=== PATIENT | female | born 1985 | race Caucasian/White ===

== ENCOUNTER 2016-06-29 01:52 | Emergency (ER) | payer MEDICAID ==
[~2016-06-29] VITALS: Ht 162.6 cm; Wt 64.3 kg
[~2016-06-29 01:52] MED LIST: ASCO500T12 PO; CLON-365 PO; DULO30CA2 PO; HYDR-3240 PO; IRON15TA3 PO; LORA-446 PO; OMEP-110 PO; SUCR1ORA2 PO; TRAZ100T15 PO
[2016-06-29 01:58] VITALS: BP 122/88
[2016-06-29] MEDS ORDERED: ONDANSETRON ODT 4 MG ONE (02:08)
[2016-06-29] MEDS ORDERED: LORazepam 1MG TABLET ONE (02:08)
[2016-06-29] MEDS ORDERED: ONDANSETRON 4 MG TABLET PO ONE (02:30)
[2016-06-29] MEDS ORDERED: LORazepam 1MG TABLET PO ONE (02:30)
== END 2016-06-29 02:43 | disposition home or self-care (01) ==
LOC: ED 02:20
DX: F10.239 Alcohol dependence with withdrawal, unspecified (principal); F41.1 Generalized anxiety disorder; F32.9 Major depressive disorder, single episode, unspecified; Y90.9 Presence of alcohol in blood, level not specified; Z72.89 Other problems related to lifestyle
CPT/HCPCS: 99283; Q0162

== ENCOUNTER 2016-10-26 10:04 | Emergency (ER) | payer MEDICAID ==
[~2016-10-26] VITALS: Ht 165.1 cm; Wt 62.1 kg
[2016-10-26 10:06] VITALS: BP 113/74
[2016-10-26 11:14] LABS: HCG UR OBC PASS
== END 2016-10-26 11:41 | disposition home or self-care (01) ==
LOC: ED 10:24
DX: F10.239 Alcohol dependence with withdrawal, unspecified (principal); R31.29 Other microscopic hematuria
CPT/HCPCS: 81001; 81025; 87077; 87086; 87186; 93005; 99285

== ENCOUNTER 2016-12-02 08:23 | Emergency (ER) | payer MEDICAID ==
[~2016-12-02] VITALS: Ht 162.6 cm; Wt 60.0 kg
[~2016-12-02 08:23] MED LIST changes: -SUCR1ORA2 PO; +SUCR1ORA5 PO
[2016-12-02 09:10] LABS: DAU SCREEN DISCLAIMER
[2016-12-02 09:33] LABS: HEMATOCRIT 47.1 % (34.6-47.8); WHITE BLOOD COUNT 2.9 x10^3/uL (3.4-10)
[2016-12-02 09:34] LABS: BLOOD UREA NITROGEN 10 mg/dL (7-18)
[2016-12-02 09:37] LABS: ASPARTATE AMINO TRANSFERASE 443 U/L (15-37)
[2016-12-02 09:44] LABS: HCG UR OBC PASS
[2016-12-02 10:10] LABS: ACETAMINOPHEN < 2 mcg/mL (10-30)
[2016-12-02] MEDS ORDERED: ACETAMINOPHEN 325 MG TABLET PO ONE (13:00)
[2016-12-02] MEDS ORDERED: ACETAMINOPHEN 325 MG TABLET ONE (13:48)
[2016-12-02 14:20] VITALS: BP 120/84
[2016-12-02] MEDS ORDERED: CLON2TAB PO (20:52)
== END 2016-12-02 14:48 | disposition home or self-care (01) ==
LOC: ED 09:01
DX: F10.120 Alcohol abuse with intoxication, uncomplicated (principal); K70.9 Alcoholic liver disease, unspecified
CPT/HCPCS: 36415; 80053; 80307; 80329; 81025; 85025; 99284; G0480

== ENCOUNTER 2016-12-02 20:25 | Emergency (ER) | payer MEDICAID ==
[~2016-12-02] VITALS: Ht 165.1 cm; Wt 59.5 kg
[2016-12-02] MEDS ORDERED: CLON2TAB PO (20:52)
[2016-12-02] MEDS ORDERED: THIAMINE 100MG TABLET PO ONE (21:00)
[2016-12-02] MEDS ORDERED: FOLIC ACID 1 MG TABLET PO ONE (21:00)
[2016-12-02 21:14] LABS: HEMATOCRIT 43.1 % (34.6-47.8); HEMOGLOBIN 14.7 g/dL (11.7-16.4); WHITE BLOOD COUNT 3.2 x10^3/uL (3.4-10)
[2016-12-02 21:24] LABS: ASPARTATE AMINO TRANSFERASE 705 U/L (15-37); BLOOD UREA NITROGEN 10 mg/dL (7-18)
[2016-12-02 21:25] LABS: DAU SCREEN DISCLAIMER
[2016-12-02 21:32] LABS: ACETAMINOPHEN < 2 mcg/mL (10-30)
[2016-12-02] MEDS ORDERED: IBUPROFEN 200 MG TABLET ONE (21:48)
[2016-12-02] MEDS ORDERED: ONDANSETRON ODT 4 MG ONE (21:51)
[2016-12-02] MEDS ORDERED: ONDANSETRON ODT 4 MG PO ONE (22:00)
[2016-12-02] MEDS ORDERED: IBUPROFEN 200 MG TABLET PO ONE (22:00)
[2016-12-02 23:00] VITALS: BP 115/79
[2016-12-02] MEDS ORDERED: LORazepam 1MG TABLET ONE (23:33)
[2016-12-03] MEDS ORDERED: LORazepam 1MG TABLET PO ONE
== END 2016-12-02 23:48 | disposition home or self-care (01) ==
LOC: ED 23:17
DX: F10.230 Alcohol dependence with withdrawal, uncomplicated (principal); N30.90 Cystitis, unspecified without hematuria; F17.200 Nicotine dependence, unspecified, uncomplicated; Z88.0 Allergy status to penicillin
CPT/HCPCS: 36415; 80053; 80307; 80329; 81001; 84703; 85025; 87077; 87086; 87186; 99284; Q0162; G0480

== ENCOUNTER 2016-12-03 19:36 | Emergency (ER) | payer MEDICAID ==
[~2016-12-03] VITALS: Ht 170.2 cm; Wt 64.0 kg
[~2016-12-03 19:36] MED LIST changes: +CLON2TAB PO
[2016-12-03] MEDS ORDERED: NITROFURANTOIN (MACROBID) 100 MG CAPSULE PO ONE (20:00)
[2016-12-03] MEDS ORDERED: SODIUM CHLORIDE FLUSH 10ML SYR IVF ONE (20:00)
[2016-12-03] MEDS ORDERED: SODIUM CHLORIDE 0.9% 1,000ML IVBOLUS ONE (20:00)
[2016-12-03] MEDS ORDERED: THIAMINE 100MG TABLET PO ONE (20:00)
[2016-12-03] MEDS ORDERED: LORazepam 2 MG/ML, 1ML IVPush PRN (20:00)
[2016-12-03] MEDS ORDERED: ONDANSETRON 2MG/ML, 2ML IVPush ONE ×2 (20:00→22:30)
[2016-12-03] MEDS ORDERED: ONDANSETRON 2MG/ML, 2ML ONE ×2 (20:07→22:15)
[2016-12-03] MEDS ORDERED: LORazepam 2 MG/ML, 1ML ONE (20:07)
[2016-12-03 20:12] LABS: BLOOD UREA NITROGEN 11 mg/dL (7-18)
[2016-12-03 20:15] LABS: ASPARTATE AMINO TRANSFERASE 443 U/L (15-37)
[2016-12-03 20:25] LABS: HEMATOCRIT 37.6 % (34.6-47.8); HEMOGLOBIN 12.8 g/dL (11.7-16.4); WHITE BLOOD COUNT 2.4 x10^3/uL (3.4-10)
[2016-12-03] MEDS ORDERED: THIAMINE 100MG TABLET ONE (21:32)
[2016-12-03 22:42] VITALS: BP 110/64
== END 2016-12-03 22:44 | disposition home or self-care (01) ==
LOC: ED 19:40
DX: F10.239 Alcohol dependence with withdrawal, unspecified (principal); F41.9 Anxiety disorder, unspecified; F19.10 Other psychoactive substance abuse, uncomplicated; Z88.0 Allergy status to penicillin
CPT/HCPCS: 36415; 80053; 85025; 96361; 96374; 96375; 96376; 99285; J2060; J2405; J7030

== ENCOUNTER 2017-03-10 12:26 | Emergency (ER) | payer MEDICAID ==
[~2017-03-10] VITALS: Ht 165.1 cm; Wt 60.0 kg
[2017-03-10] MEDS ORDERED: LORazepam 2 MG/ML, 1ML IVPush ONE (13:00)
[2017-03-10] MEDS ORDERED: PLEASE ENTER HEIGHT AND WEIGHT MC SCH (13:00)
[2017-03-10] MEDS ORDERED: THIAMINE 100MG TABLET PO ONE (13:00)
[2017-03-10] MEDS ORDERED: FOLIC ACID 1 MG TABLET PO ONE (13:00)
[2017-03-10] MEDS ORDERED: SODIUM CHLORIDE FLUSH 10ML SYR IVF ONE (13:00)
[2017-03-10] MEDS ORDERED: CHLORDIAZEPOXIDE 25 MG CAPSULE PO ONE (13:00)
[2017-03-10] MEDS ORDERED: ONDANSETRON 2MG/ML, 2ML IVPush ONE (13:00)
[2017-03-10] MEDS ORDERED: SODIUM CHLORIDE 0.9% 1,000ML IVBOLUS ONE (13:00)
[2017-03-10 13:31] LABS: HEMATOCRIT 42.8 % (34.6-47.8); HEMOGLOBIN 14.9 g/dL (11.7-16.4); WHITE BLOOD COUNT 5.7 x10^3/uL (3.4-10)
[2017-03-10 13:41] LABS: BLOOD UREA NITROGEN 8 mg/dL (7-18)
[2017-03-10 13:47] LABS: ASPARTATE AMINO TRANSFERASE 307 U/L (15-37)
[2017-03-10 15:57] VITALS: BP 104/66
== END 2017-03-10 15:59 | disposition home or self-care (01) ==
LOC: ED 13:49
DX: F10.129 Alcohol abuse with intoxication, unspecified (principal); F41.9 Anxiety disorder, unspecified; I48.91 Unspecified atrial fibrillation
CPT/HCPCS: 36415; 80053; 84703; 85025; 93005; 96361; 96374; 96375; 99285; J2060; J2405; J7030

== ENCOUNTER 2017-05-09 20:39 | Emergency (ER) | payer MEDICAID ==
[~2017-05-09] VITALS: Ht 165.1 cm; Wt 62.0 kg
[2017-05-09] MEDS ORDERED: ONDANSETRON 2MG/ML, 2ML ONE (21:00)
[2017-05-09] MEDS ORDERED: SODIUM CHLORIDE FLUSH 10ML SYR IVF ONE (21:00)
[2017-05-09] MEDS ORDERED: THIAMINE 100MG TABLET PO ONE (21:00)
[2017-05-09] MEDS ORDERED: SODIUM CHLORIDE 0.9% 1,000ML IVBOLUS ONE (21:00)
[2017-05-09] MEDS ORDERED: ONDANSETRON 2MG/ML, 2ML IVPush ONE (21:00)
[2017-05-09] MEDS ORDERED: LORazepam 2 MG/ML, 1ML ONE ×2 (21:07→22:08)
[2017-05-09 21:24] LABS: BASOPHILS # (AUTO) 0.02 x10^3/uL (0-0.1); BASOPHILS % (AUTO) 1 % (0-1); EOSINOPHILS # (AUTO) 0.02 x10^3/uL (0-0.4); EOSINOPHILS % (AUTO) 0 % (1-7); LYMPHOCYTES # (AUTO) 0.97 x10^3/uL (1-3.4); LYMPHOCYTES % (AUTO) 23 % (22-44); MD NO; MEAN CORPUSCULAR HEMOGLOBIN 31.8 pg (27.0-34.8); MEAN CORPUSCULAR VOLUME 96.5 fL (80-100); MEAN PLATELET VOLUME 7.2 fL (7.4-10.4); MONOCYTES % (AUTO) 12 % (2-9); NEUTROPHILS # (AUTO) 2.75 x10^3/uL (1.8-6.8); NEUTROPHILS % (AUTO) 65 % (42-75); PLATELET COUNT 168 x10^3/uL (130-400); RED BLOOD COUNT 4.53 x10^6/uL (3.82-5.3); RED CELL DISTRIBUTION WIDTH 15.1 % (9.6-15.2)
[2017-05-09] MEDS ORDERED: LORazepam 2 MG/ML, 1ML IVPush ONE ×2 (21:30→22:00)
[2017-05-09 21:35] LABS: INTERNATIONAL NORMALIZED RATIO 1.13 (0.93-1.1); PROTHROMBIN TIME 11.6 Seconds (9.6-11.5)
[2017-05-09 21:36] LABS: ALBUMIN 3.9 g/dL (3.4-5.0); ANION GAP 11 mmol/L (5-15); CALCIUM 8.4 mg/dL (8.5-10.1); CHLORIDE 98 mmol/L (98-107); CREATININE 0.48 mg/dL (0.55-1.02)
[2017-05-09] MEDS ORDERED: PROMETHAZINE 25 MG/ML, 1ML IM ONE (22:00)
[2017-05-09] MEDS ORDERED: PROMETHAZINE 25 MG/ML, 1ML ONE (22:02)
[2017-05-09] MEDS ORDERED: LORazepam 1MG TABLET PO ONE (22:30)
[2017-05-09 23:45] VITALS: BP 100/63
== END 2017-05-09 23:48 | disposition short-term general hospital (02) ==
LOC: ED 21:59
DX: S00.81XA Abrasion of other part of head, initial encounter (principal); F10.10 Alcohol abuse, uncomplicated; W19.XXXA Unspecified fall, initial encounter; Y93.89 Activity, other specified; Y92.89 Other specified places as the place of occurrence of the external cause; Y99.9 Unspecified external cause status
CPT/HCPCS: 36415; 70450; 70486; 72125; 80048; 82040; 84703; 85025; 85610; 96361; 96372; 96374; 96375; 96376; 99285; J2060; J2405; J2550; J7030

== ENCOUNTER 2017-06-28 14:35 | Emergency (ER) | payer MEDICAID ==
[~2017-06-28] VITALS: Ht 166.4 cm; Wt 58.3 kg
[2017-06-28 14:39] VITALS: BP 123/76
[2017-06-28 15:47] LABS: MEAN CORPUSCULAR HEMOGLOBIN 31.8 pg (27.0-34.8); MEAN CORPUSCULAR HGB CONC 33.5 g/dL (32.4-35.8); MEAN PLATELET VOLUME 6.5 fL (7.4-10.4); PLATELET COUNT 254 x10^3/uL (130-400); RED BLOOD COUNT 4.88 x10^6/uL (3.82-5.3); RED CELL DISTRIBUTION WIDTH 17.8 % (9.6-15.2)
[2017-06-28 15:55] LABS: ALANINE AMINOTRANSFERASE 135 U/L (12-78); ALBUMIN 4.1 g/dL (3.4-5.0); ANION GAP 10 mmol/L (5-15); CALCIUM 8.4 mg/dL (8.5-10.1); CHLORIDE 99 mmol/L (98-107)
[2017-06-28 16:00] LABS: ALKALINE PHOSPHATASE 81 U/L (45-117); BILIRUBIN,TOTAL 1.2 mg/dL (0.2-1.0); CREATININE 0.66 mg/dL (0.55-1.02); TOTAL PROTEIN 7.9 g/dL (6.4-8.2)
[2017-06-28 16:06] LABS: MICROSCOPIC INDICATED
[2017-06-28 16:08] LABS: CULTURE INDICATED? YES
[2017-06-28 16:14] LABS: MD YES
[2017-06-28 16:45] LABS: BASOS#(MANUAL) 0.02 x10^3/uL (0-0.1); BASOS% (MANUAL) 1 % (0-1); EOS#(MANUAL) 0.02 x10^3/uL (0.0-0.4); EOS% (MANUAL) 1 % (1-7); LYMPH#(MANUAL) 0.98 x10^3/uL (1-3.4); LYMPHS% (MANUAL) 41 % (22-44); MONOS#(MANUAL) 0.31 x10^3/uL (0.3-2.7); MONOS% (MANUAL) 13 % (2-9); REACTIVE LYMPHS % (MANUAL) 4 % (0-0); SEG#(MANUAL) 0.96 x10^3/uL (1.8-6.8); SEGS% (MANUAL) 40 % (42-75)
[2017-06-28 16:46] LABS: <PLATELET ESTIMATE> ADEQUATE; <PLT MORPHOLOGY> NORMAL PLT MORPH; <RBC MORPHOLOGY> NORMAL
== END 2017-06-28 17:14 | disposition home or self-care (01) ==
LOC: ED 16:45
DX: F10.129 Alcohol abuse with intoxication, unspecified (principal); Z00.00 Encounter for general adult medical examination without abnormal findings
CPT/HCPCS: 36415; 80053; 81001; 83690; 84703; 85025; 87077; 87086; 99284

== ENCOUNTER 2017-09-01 20:20 | Emergency (ER) | payer MEDICAID ==
[~2017-09-01] VITALS: Ht 165.1 cm; Wt 59.0 kg
[2017-09-01 21:28] VITALS: BP 122/85
== END 2017-09-01 21:51 | disposition home or self-care (01) ==
LOC: ED 21:30
DX: F10.220 Alcohol dependence with intoxication, uncomplicated (principal)
CPT/HCPCS: 99283

== ENCOUNTER 2018-04-12 11:53 | Emergency (ER) | payer MEDICAID ==
[~2018-04-12] VITALS: Ht 165.1 cm; Wt 63.8 kg
[~2018-04-12 11:53] MED LIST changes: -CLON-365 PO; +CLON1TAB11 PO; +TRAZ-137 PO; -TRAZ100T15 PO
--- NOTE | 2018-04-12 12:11 | NUR ---
RFID TECHNICIAN: PT TO ROOM, BROUGHT IN VIA EMS
--- NOTE | 2018-04-12 12:14 | NUR ---
pt changed into gown, tearful but responds approp to staff- denies HI/SI, NAD, comfort measures provided, call light within reach. cardiac, NIBP & SpO2 monitors in place.
[2018-04-12] MEDS ORDERED: THIAMINE 100MG TABLET ONE (12:57)
--- NOTE | 2018-04-12 13:09 | NUR ---
pt laying on gurney with eyes closed, responds approp to staff, NAD, comfort measures provided, call light within reach.
[2018-04-12 13:59] VITALS: BP 126/81
--- NOTE | 2018-04-12 13:59 | NUR ---
pt continues to lay on gurney awake & calm, responds approp to staff, NAD, comfort measures provided, call light within reach.
[2018-04-12] MEDS ORDERED: THIAMINE 100MG TABLET PO ONE (14:00)
--- NOTE | 2018-04-12 14:24 | NUR ---
pt ambulated to indep with this RN present, responds approp to staff, NAD, no needs at this time. Patient given discharge instructions and EtOH detox referrals, they have confirmed that they understand the instructions. Patient ambulatory with steady gait.
== END 2018-04-12 14:40 | disposition home or self-care (01) ==
LOC: ED 13:18
DX: F10.229 Alcohol dependence with intoxication, unspecified (principal); F41.1 Generalized anxiety disorder; F32.9 Major depressive disorder, single episode, unspecified; Z72.9 Problem related to lifestyle, unspecified; Y90.9 Presence of alcohol in blood, level not specified
CPT/HCPCS: 99283

== ENCOUNTER 2019-02-04 15:48 | Emergency (ER) | payer MEDICAID ==
[~2019-02-04] VITALS: Ht 165.1 cm; Wt 60.0 kg
[~2019-02-04 15:48] MED LIST changes: +ASCO-254 PO; -ASCO500T12 PO
--- NOTE | 2019-02-04 16:08 | NUR ---
Pt presents to ED by EMS from home with c/o "wanting to be admitted to detox from alchol. I want Seroquel for sleeping, I am not bipolar, last time they gave me Remeron. I didn't take it." Pt states alcohol consumption of "I don't know how much I drank today." Pt resting on gurney connected to environmental monitoring technician, NIBP cuff, and continous pulse ox monitor. Bedrails up x 2, call light within reach.
[2019-02-04] MEDS ORDERED: ONDANSETRON 2MG/ML, 2ML IVPush ONE (17:00)
[2019-02-04] MEDS ORDERED: FAMOTIDINE 20 MG TABLET PO ONE (17:00)
[2019-02-04] MEDS ORDERED: QUETIAPINE 25MG TABLET PO ONE (17:00)
[2019-02-04] MEDS ORDERED: MAALOX/HYOSCYAMINE/LIDOCAINE 45 ML BTL PO ONE (17:00)
[2019-02-04] MEDS ORDERED: ONDANSETRON ODT 4 MG ONE (17:11)
[2019-02-04] MEDS ORDERED: MAALOX/HYOSCYAMINE/LIDOCAINE 45 ML BTL ONE (17:11)
[2019-02-04] MEDS ORDERED: FAMOTIDINE 20 MG TABLET ONE (17:11)
[2019-02-04] MEDS ORDERED: QUETIAPINE 25MG TABLET ONE (17:13)
[2019-02-04 17:21] LABS: MEAN CORPUSCULAR HEMOGLOBIN 32.7 pg (27.0-34.8); MEAN CORPUSCULAR HGB CONC 33.4 g/dL (32.4-35.8); MEAN CORPUSCULAR VOLUME 97.8 fL (80-100); MEAN PLATELET VOLUME 6.9 fL (7.4-10.4); PLATELET COUNT 238 x10^3/uL (130-400); RED BLOOD COUNT 4.87 x10^6/uL (3.82-5.3); RED CELL DISTRIBUTION WIDTH 14.9 % (9.6-15.2)
[2019-02-04] MEDS ORDERED: ONDANSETRON ODT 4 MG PO ONE (17:30)
[2019-02-04] MEDS ORDERED: LORazepam 1MG TABLET PO ONE (17:30)
[2019-02-04 17:33] LABS: ALANINE AMINOTRANSFERASE 98 U/L (12-78); ALBUMIN 4.4 g/dL (3.4-5.0); ANION GAP 12 mmol/L (5-15); CHLORIDE 103 mmol/L (98-107); CREATININE 0.62 mg/dL (0.55-1.02)
[2019-02-04 17:37] LABS: ALKALINE PHOSPHATASE 52 U/L (45-117); BILIRUBIN,TOTAL 0.8 mg/dL (0.2-1.0); TOTAL PROTEIN 8.3 g/dL (6.4-8.2); TROPONIN I < 0.015 ng/mL (0.000-0.045)
[2019-02-04] MEDS ORDERED: LORazepam 1MG TABLET ONE (18:01)
[2019-02-04 18:12] LABS: BASOPHILS # (AUTO) 0.03 x10^3/uL (0-0.1); BASOPHILS % (AUTO) 1 % (0-1); EOSINOPHILS # (AUTO) 0.02 x10^3/uL (0-0.4); EOSINOPHILS % (AUTO) 1 % (1-7); LYMPHOCYTES # (AUTO) 2.03 x10^3/uL (1-3.4); LYMPHOCYTES % (AUTO) 60 % (22-44); MD SCAN; MONOCYTES # (AUTO) 0.29 x10^3/uL (0.2-0.8); MONOCYTES % (AUTO) 9 % (2-9); NEUTROPHILS # (AUTO) 1.03 x10^3/uL (1.8-6.8); NEUTROPHILS % (AUTO) 30 % (42-75)
--- NOTE | 2019-02-04 18:58 | NUR ---
Provided report to JODY Zhou. All questions answered. JODY Zhou to assume care of pt at this time.
[2019-02-04 19:24] VITALS: BP 115/70
--- NOTE | 2019-02-04 19:25 | NUR ---
PT WHISKEY REGAUGER LIGHT, FOUND PT RESTING ON [place] SHE STATED " I WANT TO TALK TO THE DOCTOR AGAIN BECAUSE I WANT MORE MEDICATION FOR WITHDRAWL", WILL UPDATE ERP. MONITORS IN PLACE, CALL LIGHT WITHIN REACH
--- NOTE | 2019-02-04 19:36 | NUR ---
PT UPDATED ERP TO D/C HER WITH SCRIPT FOR MEDICATION TO HELP WITH WITHDRAWL, PT AGREES AND VERBALIZED UNDERSTANDING
== END 2019-02-04 19:40 | disposition home or self-care (01) ==
LOC: ED 18:31
DX: F10.120 Alcohol abuse with intoxication, uncomplicated (principal); K29.21 Alcoholic gastritis with bleeding; F32.9 Major depressive disorder, single episode, unspecified; F41.1 Generalized anxiety disorder
CPT/HCPCS: 36415; 71045; 80053; 83690; 84484; 85025; 93005; 99284; Q0162

== ENCOUNTER 2019-02-25 11:16 | Emergency (ER) | payer MEDICAID ==
[~2019-02-25] VITALS: Ht 167.6 cm; Wt 62.0 kg
--- NOTE | 2019-02-25 11:45 | NUR ---
COMMUNICATIONS SCIENTIST: PT TO ROOM FROM STEVE DO.
[2019-02-25] MEDS ORDERED: KETOROLAC 30 MG/1 ML ONE (12:16)
[2019-02-25] MEDS ORDERED: ONDANSETRON ODT 4 MG ONE (12:16)
[2019-02-25] MEDS ORDERED: ONDANSETRON ODT 4 MG PO ONE (12:30)
[2019-02-25] MEDS ORDERED: KETOROLAC 30 MG/1 ML IM ONE (12:30)
--- NOTE | 2019-02-25 12:35 | NUR ---
PT DESATTING WHILE SLEEPING, PLACED ON 2L O2 NC. DENIES ANY FURTHER NEEDS OR CONCERNS AT THIS TIME. CALL LIGHT IN REACH.
[2019-02-25 12:39] LABS: BASOPHILS # (AUTO) 0.04 x10^3/uL (0-0.1); BASOPHILS % (AUTO) 1 % (0-1); EOSINOPHILS % (AUTO) 0 % (1-7); LYMPHOCYTES # (AUTO) 1.36 x10^3/uL (1-3.4); LYMPHOCYTES % (AUTO) 35 % (22-44); MD NO; MEAN CORPUSCULAR HEMOGLOBIN 32.5 pg (27.0-34.8); MEAN CORPUSCULAR HGB CONC 33.3 g/dL (32.4-35.8); MEAN CORPUSCULAR VOLUME 97.6 fL (80-100); MEAN PLATELET VOLUME 6.6 fL (7.4-10.4); MONOCYTES # (AUTO) 0.29 x10^3/uL (0.2-0.8); MONOCYTES % (AUTO) 8 % (2-9); NEUTROPHILS # (AUTO) 2.19 x10^3/uL (1.8-6.8); NEUTROPHILS % (AUTO) 56 % (42-75); PLATELET COUNT 259 x10^3/uL (130-400); RED BLOOD COUNT 4.77 x10^6/uL (3.82-5.3); RED CELL DISTRIBUTION WIDTH 15.8 % (9.6-15.2)
[2019-02-25] MEDS ORDERED: THIAMINE 100MG TABLET PO ONE (14:00)
[2019-02-25 14:04] LABS: MICROSCOPIC INDICATED
[2019-02-25 14:19] LABS: CULTURE INDICATED? NO
--- NOTE | 2019-02-25 14:22 | NUR ---
PT CONTINUES RESTING IN BED. STATES THAT HER BF GETS OFF OF WORK AT 5:30PM TONIGHT AND CAN PICK HER UP AT THAT TIME. DENIES ANY NEEDS OR CONCERNS AT THIS TIME. CALL LIGHT IN REACH.
--- NOTE | 2019-02-25 16:16 | NUR ---
PT RESTING COMFORTABLY EQUAL CHEST RISE AND FALL OBSERVED.
[2019-02-25] MEDS ORDERED: THIAMINE 100MG TABLET ONE (16:30)
[2019-02-25] MEDS ORDERED: MAALOX/HYOSCYAMINE/LIDOCAINE 45 ML BTL ONE (16:38)
--- NOTE | 2019-02-25 16:41 | NUR ---
PT REPORT OF PAIN AT THIS TIME. MADE AWARE. ORDER RECIEVED. PT REFUSED MEDICATION AT THIS TIME.
[2019-02-25] MEDS ORDERED: MAALOX/HYOSCYAMINE/LIDOCAINE 45 ML BTL PO ONE (17:00)
[2019-02-25 18:06] VITALS: BP 100/68
--- NOTE | 2019-02-25 18:17 | NUR ---
PT DEPARTING WITH CHARISMA.
== END 2019-02-25 18:18 | disposition home or self-care (01) ==
LOC: ED 12:22
DX: F10.120 Alcohol abuse with intoxication, uncomplicated (principal); N93.8 Other specified abnormal uterine and vaginal bleeding; F17.200 Nicotine dependence, unspecified, uncomplicated; Z72.9 Problem related to lifestyle, unspecified
CPT/HCPCS: 36415; 76830; 80307; 81001; 84703; 85025; 96372; 99284; J1885; Q0162

== ENCOUNTER → 2019-03-09 | Outpatient (CLI) | payer MEDICAID ==
[~2019-03-09] MED LIST changes: +NALTREXONE PO; +QUET50TA5 PO; +SULF1TAB24 PO; +ZOLP-413 PO; +[UNRECOGNIZED DRUG - OTHER] PO; +cranberry PO; +potassium PO; +prenatal vitamins PO
[2019-03-09 09:46] LABS: BASOPHILS # (AUTO) 0.06 x10^3/uL (0-0.1); BASOPHILS % (AUTO) 1 % (0-1); EOSINOPHILS # (AUTO) 0.06 x10^3/uL (0-0.4); EOSINOPHILS % (AUTO) 1 % (1-7); LYMPHOCYTES # (AUTO) 1.38 x10^3/uL (1-3.4); LYMPHOCYTES % (AUTO) 32 % (22-44); MD NO; MEAN CORPUSCULAR HEMOGLOBIN 33.3 pg (27.0-34.8); MEAN CORPUSCULAR HGB CONC 33.2 g/dL (32.4-35.8); MEAN CORPUSCULAR VOLUME 100.1 fL (80-100); MEAN PLATELET VOLUME 7.8 fL (7.4-10.4); MONOCYTES % (AUTO) 12 % (2-9); NEUTROPHILS # (AUTO) 2.34 x10^3/uL (1.8-6.8); NEUTROPHILS % (AUTO) 54 % (42-75); PLATELET COUNT 392 x10^3/uL (130-400); RED BLOOD COUNT 4.32 x10^6/uL (3.82-5.3); RED CELL DISTRIBUTION WIDTH 14.8 % (9.6-15.2)
[2019-03-09 09:59] LABS: ALANINE AMINOTRANSFERASE 133 U/L (12-78); ALBUMIN 4.2 g/dL (3.4-5.0); ANION GAP 5 mmol/L (5-15); CALCIUM 9.2 mg/dL (8.5-10.1); CHLORIDE 102 mmol/L (98-107)
[2019-03-09 10:00] LABS: MICROSCOPIC AUTO
[2019-03-09 10:04] LABS: ALKALINE PHOSPHATASE 49 U/L (45-117); BILIRUBIN,TOTAL 0.6 mg/dL (0.2-1.0); CREATININE 0.75 mg/dL (0.55-1.02); CULTURE INDICATED? YES
== END | disposition home or self-care (01) ==
LOC: STAR 08:35
PROVIDERS: ATTEND Student in an Organized Health Care Education/Training Program
DX: Z01.818 Encounter for other preprocedural examination (principal); N80.9 Endometriosis, unspecified; Z88.0 Allergy status to penicillin; Z88.5 Allergy status to narcotic agent
CPT/HCPCS: 36415; 80053; 81001; 84702; 85025; 87086

== ENCOUNTER 2019-03-16 16:14 | Emergency (ER) | payer MEDICAID ==
[~2019-03-16] VITALS: Ht 165.1 cm; Wt 63.8 kg
[2019-03-16 17:07] LABS: BASOPHILS % (AUTO) 2 % (0-1); EOSINOPHILS # (AUTO) 0.06 x10^3/uL (0-0.4); EOSINOPHILS % (AUTO) 1 % (1-7); LYMPHOCYTES # (AUTO) 2.48 x10^3/uL (1-3.4); LYMPHOCYTES % (AUTO) 38 % (22-44); MD NO; MEAN CORPUSCULAR HEMOGLOBIN 32.6 pg (27.0-34.8); MEAN CORPUSCULAR HGB CONC 33.5 g/dL (32.4-35.8); MEAN CORPUSCULAR VOLUME 97.4 fL (80-100); MEAN PLATELET VOLUME 7.8 fL (7.4-10.4); MONOCYTES # (AUTO) 0.42 x10^3/uL (0.2-0.8); MONOCYTES % (AUTO) 7 % (2-9); NEUTROPHILS # (AUTO) 3.41 x10^3/uL (1.8-6.8); NEUTROPHILS % (AUTO) 53 % (42-75); PLATELET COUNT 443 x10^3/uL (130-400); RED BLOOD COUNT 4.31 x10^6/uL (3.82-5.3); RED CELL DISTRIBUTION WIDTH 14.6 % (9.6-15.2)
[2019-03-16 17:17] LABS: ALBUMIN 4.9 g/dL (3.4-5.0); ANION GAP 9 mmol/L (5-15); CALCIUM 9.5 mg/dL (8.5-10.1); CHLORIDE 102 mmol/L (98-107)
[2019-03-16 17:23] LABS: ALANINE AMINOTRANSFERASE 65 U/L (12-78); ALKALINE PHOSPHATASE 48 U/L (45-117); BILIRUBIN,TOTAL 0.8 mg/dL (0.2-1.0); CREATININE 0.73 mg/dL (0.55-1.02); TOTAL PROTEIN 8.8 g/dL (6.4-8.2)
[2019-03-16 18:17] VITALS: BP 96/36
--- NOTE | 2019-03-16 19:45 | NUR ---
PT IV DC'D AT THIS TIME. PT GIVEN DISCHARGE INSTRUCTIONS. PT REQUESTING TO STAY OVERNIGHT IN HOSPITAL. PT DIRECTED BACK TO PREVIOUS CONVERSATION WITH MD. PT ASKS "CAN'T I JUST SLEEP A LITTLE LONGER." PT REDIRECTED BACK TO PREVIOUS DISCUSSION WITH MD. PT GIVEN REFERAL TO [facility] AND IS TO FOLLOW UP WITH TODAY. PT AXOX3 WITH VSS. PT ABLE TO AMBULATE SLOWLY WITH A STEADY GAIT. PT TAKEN TO DISCHARGE IN WHEELCHAIR AT PT REQUEST. ALL BELONGINGS ARE WITH PT. PT VERBALLY AGREES TO BEING DISCHARGED AT THIS TIME. BOYFRIEND HERE TO SUPERVISOR PLATE PASTING.
[2019-03-16 20:21] LABS: CULTURE INDICATED? YES; MICROSCOPIC INDICATED
== END 2019-03-16 21:07 | disposition home or self-care (01) ==
LOC: ED 19:23
DX: K59.00 Constipation, unspecified (principal); F17.200 Nicotine dependence, unspecified, uncomplicated; R11.0 Nausea
CPT/HCPCS: 36415; 74021; 80053; 81001; 83690; 84703; 85025; 87086; 99284